=== PATIENT | male | born 1995 | race Caucasian/White ===

== ENCOUNTER → 2023-02-11 10:38 | Outpatient (BNVA) | payer OTHER, SELFPAY | PROVIDERS: PCP Nurse Practitioner Family; Visit Provider Internal Medicine | DX: T15.01XA Foreign body in cornea, right eye, initial encounter (principal) | CPT/HCPCS: 92002; 99202 ==

== ENCOUNTER → 2023-03-11 11:43 | Outpatient (BNVA) | payer OTHER, SELFPAY | PROVIDERS: PCP Nurse Practitioner Family; Visit Provider Internal Medicine | DX: S05.02XA Injury of conjunctiva and corneal abrasion without foreign body, left eye, initial encounter (principal); X58.XXXA Exposure to other specified factors, initial encounter | CPT/HCPCS: 92002; 99203 ==

== ENCOUNTER 2023-07-12 09:38 | Outpatient (REF) | payer OTHER, SELFPAY ==
[2023-07-12 11:35] LABS: MANUAL DIFF FLAG NO
[2023-07-12 11:43] LABS: Basophils Absolute Auto 0.1 X10*3/uL (0.0-0.2); Basophils Percent Auto 1.1 % (0-2); Eosinophils Absolute Auto 0.1 X10*3/uL (0.0-0.4); Eosinophils Percent Auto 2.4 % (0-4); Hematocrit 45.2 % (42.0-52.0); Hemoglobin 15.3 g/dl (14.0-18.0); Imm Gran Abs Auto 0.01 X10*3/uL (0.00-0.03); Imm Gran Pct Auto 0.2 % (0.0-0.4); Lymphocytes Absolute Auto 1.2 X10*3/uL (1.2-4.9); Lymphocytes Percent Auto 26.3 % (20-40); Mean Corpuscular HGB Conc 33.8 g/dl (31.0-36.0); Mean Corpuscular Hemoglobin 30.4 pg (27.0-33.0); Mean Corpuscular Volume 89.7 fL (80.0-98.0); Mean Platelet Volume 10.7 fL (9.4-12.4); Monocytes Absolute Auto 0.4 X10*3/uL (0.1-1.2); Monocytes Percent Auto 9.3 % (2-11); Neutrophils Absolute Auto 2.8 x10*3/uL (2.0-8.3); Neutrophils Percent Auto 60.7 % (45-73); Platelet Count 261 X10*3/uL (160-400); Red Blood Count 5.04 X10*6/uL (4.60-5.80); Red Cell Distribution Width 11.7 % (11.0-16.0); White Blood Count 4.6 X10*3/uL (4.8-10.8)
[2023-07-12 12:30] LABS: Alanine Aminotransferase 18 U/L (0-40); Albumin Level 4.7 g/dL (3.5-5.0); Alkaline Phosphatase 76 U/L (39-117); Anion Gap 13 (12-20); Aspartate Amino Transferase 26 U/L (5-37); Bilirubin Total 0.6 mg/dL (0.0-1.0); Blood Urea Nitrogen 9 mg/dL (9-16); Calcium 9.7 mg/dL (8.4-10.2); Carbon Dioxide 27 mmol/L (22-29); Chloride 105 mmol/L (96-108); Cholesterol 164 mg/dL (<200); Estimated Glomerular Filt Rate > 60; Glucose Fasting 92 mg/dL (60-99); HDL Cholesterol 46 mg/dL (>40); LDL Cholesterol Calculated 95 mg/dL (<100); Sodium 141 mmol/L (135-145); Total Protein 7.7 g/dL (6.5-8.0); Triglycerides 119 mg/dL (<150)
[2023-07-12 12:46] LABS: TSH reflex Free T4 2.21 uIU/mL (0.32-4.0)
[2023-07-12 13:58] LABS: Appearance Urine Clear; Color Urine Yellow; Glucose Urine UA Negative (Negative); Leukocyte Esterase Urine Negative (Negative); Nitrite Urine Negative (Negative); PH 5.5 (5.0-9.0); Urine Blood Negative (Negative); Urine Ketones Negative (Negative); Urine Protein Negative (Neg-Trace)
== END 2023-07-12 09:39 | disposition home or self-care (01) ==
LOC: HO.HMGCLDS 09:38
PROVIDERS: PCP Nurse Practitioner Family; Visit Provider Nurse Practitioner Family
DX: Z00.00 Encounter for general adult medical examination without abnormal findings (principal)
CPT/HCPCS: 36415; 80053; 80061; 81003; 84443; 85025

== ENCOUNTER 2023-07-14 13:58 | Outpatient (AMB) | payer OTHER, SELFPAY ==
[2023-07-14 14:39] VITALS: BP 110/64; PULSE 93; TEMP 36.8; O2SAT 98; BMI 23.6
--- NOTE | 2023-07-14 14:39 | MHC.OFFWIV ---
Intake Vital Signs 07/14/23 14:39 Height 5 ft 8 in Weight 155 lb BMI 23.6 BP 110/64 Blood Pressure Location Rt brachial Position Sitting Pulse 93 Pulse Source Pulse Oximeter Temp 98.3 F Temp Source Temporal Artery Scan Pulse Oximetry (%) 98 Oxygen Delivery Method Room Air Intake Visit Reasons: EP sore throat/strep Intake Note: pt is here today for sore throat started wednesday Patient Tobacco Use Status: Former Tobacco user Quit Date: 3 years ago Allergies No Known Allergies Allergy (Verified 07/14/23 14:53) Do you need a note to return to daycare/school/sports/work: No HPI HPI Comments History of Present Illness Details Patient is a 28-year-old male in today for sick visit. He states that he started to feel sore throat 1 day prior to arrival. He states he has no other symptoms, denies dizziness, chest pain, shortness of breath, vomiting, nausea. He states that his partner is home sick with the same symptoms. He has a history of recurrent strep throat. [facility] Social History Housing: Apartment Patient Tobacco Use Status: Former Tobacco user Quit Date: 3 years ago e-Cigarette/Vaping Use: Currently Using Second Hand Smoke Exposure: No service: No Current occupational status: employed Current occupation: [employer] Current occupational exposures/hazards: No Cognitive needs: No Hearing needs: No Vision needs: No Review of Systems Const Details: Constitutional : No Weight loss, No Fever, No Chills, No Fatigue, No Malaise ENT/Mouth : Admits sore throat. Eyes: No Eye Pain, No Swelling, No Redness Cardiovascular : No Chest Pain, No SOB, No Dyspnea on Exertion, No Orthopnea, No Edema, No Palpitations Respiratory : No Cough, No Sputum, No Wheezing Gastrointestinal : No Nausea, No Vomiting, No Diarrhea, No Constipation, No abdominal Pain, No Hematochezia, No Melena Neuro : No Weakness, No Numbness, No Dizziness, No Headache All other systems reviewed and are negative Physical Exam Vital Signs: Last Vital Signs Temp 98.3 F 07/14/23 14:39 Pulse 93 07/14/23 14:39 BP 110/64 07/14/23 14:39 Pulse Ox 98 07/14/23 14:39 Oxygen Delivery Method Room Air 07/14/23 14:39 BMI result Body Mass Index 23.6 Vital signs reviewed and are stable. Const Other: Appearance: Alert.? Oriented X3.? No acute distress.? Head: Normocephalic, atraumatic, no step-offs or deformities Eyes: Pupils equal, round and reactive to light.? ENT: Pharynx erythema. Purulent drainage over bilateral tonsils. Tonsils plus 2. Neck: Normal inspection.? Neck supple.?Full ROM CVS: Normal heart rate and rhythm.? Pulses normal.? Respiratory: No respiratory distress.? Breath sounds normal.? Neuro: Oriented X 3.? No motor deficit.? No sensory deficit. CN 2-12 intact Results AMB Rapid Strep AMB Rapid Strep Negative Last Edit by Shirley Jauregui CMA on 07/14/23 15:09 Results Reviewed Results Reviewed: Laboratory Last Values Strep Scn Rapid Clinic Negative 07/14/23 15:08 Assessment & Plan Assessment & Plan (1) Strep throat: Comment: Physical exam demonstrated erythema of the pharynx, petechiae, cobblestone, purulent and drainage over the bilateral tonsils. Tonsils are +2. Patient also states he has a history of recurrent strep throat in gets strep throat at least once per year. Will prescribe Augmentin to be taken as directed. Patient has been educated on how to take this medication properly. Patient has been educated on side effects of this medication Code(s): J02.0 - Streptococcal pharyngitis Plan: Take your medications as prescribed. If you were prescribed antibiotics today, it is important that you take your medication to their entirety, do not skip any doses, do not finish them early. Follow-up with your primary care provider this week. Return to the emergency department with new or worsening symptoms. Such as fevers, chills, chest pain, shortness of breath, nausea, vomiting, dizziness, headache, vision changes, lethargy In case of emergency call 911 Orders: Orders AMB Rapid Strep Screen Today Z13.9 - Encounter for screening, unspecified Coding Level of Care Code Est Pt Level 3 (74163) Diagnoses Strep throat J02.0 Time Spent (min) 30
== END 2023-07-14 17:06 | disposition home or self-care (01) ==
PROVIDERS: PCP Nurse Practitioner Family; Visit Provider Nurse Practitioner Primary Care
DX: J02.0 Streptococcal pharyngitis (principal)
CPT/HCPCS: 87880; 99213

== ENCOUNTER 2023-07-14 19:07 | Outpatient (REF) | payer OTHER, SELFPAY ==
[2023-07-14 20:02] LABS: Influenza A PCR NEGATIVE (Negative); Influenza B PCR NEGATIVE (Negative); Resp Syncy Virus RNA Qual PCR NEGATIVE (Negative); SARS COV2 PCR INHOUSE NEGATIVE (Negative)
== END 2023-07-14 19:08 | disposition home or self-care (01) ==
LOC: HO.HMGCLNP 19:07
PROVIDERS: Visit Provider Nurse Practitioner Primary Care
DX: Z11.52 Encounter for screening for COVID-19 (principal); J06.9 Acute upper respiratory infection, unspecified
CPT/HCPCS: 0241U

== ENCOUNTER 2023-07-15 07:45 | Outpatient (AMB) | payer OTHER, SELFPAY ==
--- NOTE | 2023-07-15 07:49 | A.OFFPC_ITS ---
Vital Signs 07/15/23 07:52 Height 5 ft 4 in Weight 157 lb BMI 26.9 BP 118/70 Blood Pressure Location Rt brachial Position Sitting Pulse 78 Pulse Source Pulse Oximeter Pulse Oximetry (%) 98 Oxygen Delivery Method Room Air Intake Visit Reasons: PE Intake Note: Patient here for physical exam and would like to talk about a pulled muscle on right side and ended up in the ED, he is out of work until wednesday after teresa but is unsure if he should have restrictions since he is still in pain. Allergies No Known Allergies Allergy (Verified 07/15/23 07:54) Tobacco use date assessed: 12/10/22 Dental Screening Dental Screen Date: 07/15/23 Did you have a dental visit in the last 12 months?: No Did you have a dental problem in the last 6 months where you did not have access to dental care?: No Was dental information given to patient?: Patient has dentist HPI PE HPI Details Pt is here for a PE. Labs were already ordered. Pt was seen in the walk-in yesterday and treated for strep throat with augmentin. He reports feeling better today, though he will finish his antibiotic. [facility] Social History Housing: Apartment Patient Tobacco Use Status: Former Tobacco user Quit Date: 3 years ago e-Cigarette/Vaping Use: Currently Using Second Hand Smoke Exposure: No service: No Current occupational status: employed Current occupation: [employer] Current occupational exposures/hazards: No Cognitive needs: No Hearing needs: No Vision needs: No Questionnaire Thrive Questionnaire Date Thrive assessed: 12/10/22 AUDIT C Alcohol Use Questionnaire (AUDIT-C) 1. How often do you have a drink containing alcohol?: Monthly or less 2. How many drinks containing alcohol do you have on a typical day when you are drinking?: 1 or 2 3. How often do you have six or more drinks on one occasion?: Never Total Score: 1 Score Reviewed/Action Taken: No YOCASTA-7 AMB Questionnaire YOCASTA-7 Date YOCASTA - 7 assessed: 12/10/22 Source: Developed by Drs. Mikel Sharma, Brianna Chavez, Matt Stokes and colleagues, with an educational shana from [employer]. Review of Systems Const Denies chills and Denies fever(s) Eyes Denies blurry vision ENT Denies vertigo, Denies dizziness and Denies sore throat Card Denies chest pain at rest, Denies chest pain with activity, Denies diaphoresis, Denies dyspnea and Denies dyspnea on exertion Resp Denies cough, Denies dyspnea, Denies dyspnea on exertion and Denies wheezing GI Denies abdominal pain, Denies melena, Denies hematochezia, Denies constipation, Denies diarrhea and Denies loose stools Denies hematuria Musc Denies numbness and Denies tingling Skin/Breast Denies lesions Neuro Denies vertigo, Denies dizziness, Denies numbness and Denies tingling Psych Denies anxiety, Denies depression, Denies homicidal ideation, Denies suicidal ideation and Denies other (substance abuse) Aller/Immun Denies wheezing Physical exam (Primary Care) Vital Signs: Last Vital Signs Pulse 78 07/15/23 07:52 BP 118/70 07/15/23 07:52 Pulse Ox 98 07/15/23 07:52 Oxygen Delivery Method Room Air 07/15/23 07:52 BMI result Body Mass Index 26.9 Tobacco/Smoking Status: Tobacco use Status Tobacco use date assessed 12/10/22 07/15/23 07:49 Patient Tobacco Use Status Former Tobacco user 07/15/23 07:49 e-Cigarette/Vaping Use Currently Using 07/15/23 07:49 Thrive Assessment: Date of Thrive Assessment Date Thrive assessed 12/10/22 07/15/23 07:49 Const General: cooperative Nutritional Appearance: well nourished Orientation/consciousness: patient oriented x3 HENMT Other: tonsils swollen and erythematous Head: Yes normal to inspection, Yes normocephalic and Yes atraumatic Ears: TM's normal bilaterally Eyes General: appearance normal, both eyes and all related structures Alignment and Position: alignment normal and position normal Neck Neck: Yes normal visual inspection and Yes no lymphadenopathy Thyroid: Thyroid normal Resp Effort & Inspection: normal respiratory effort Auscultation: clear to auscultation bilaterally Cardio Rate: regular rate Rhythm: regular rhythm Heart sounds: S1 normal heart sound present, S2 normal heart sound present and no murmurs GI Palpation (GI): Soft to palpation and nontender Auscultation: normal bowel sounds Male General Exam: Yes normal external exam Penis: normal penis Scrotum: scrotum normal, testes descended bilaterally and no inguinal hernias Testes: no testicular mass Skin Rashes: no rashes Neuro General: patient oriented x3, moves all extremities, no focal motor deficits and deep tendon reflexes 2+ bilaterally Romberg Test: Negative Psych Appearance: grossly normal Mental Status: mental status grossly normal Speech and movement: Normal speech and movement present Affect: normal affect Attitude: cooperative Thought process: Normal thought process present Thought content: Normal thought content present Insight: Good insight present (Psych) Judgement: Good judgement present (Psych) Assessment and Plan Assessment & Plan (1) Physical exam: Code(s): Z00.00 - Encounter for general adult medical examination without abnormal findings Plan: Labs ordered Plan The patient agreed to the use of a medical billing coder for this encounter. Scribed for KASHIF Julien by Anahi Hansen medical billing coder, on 07/15/2023 at 08:00 EST. Orders: Orders Complete Blood Count Auto Diff Today Z00.00 - Encounter for general adult medical examination without abnormal findings TSH reflex Free T4 Today Z00.00 - Encounter for general adult medical examination without abnormal findings Comprehensive Edgard. Panel Fast Today Z00.00 - Encounter for general adult medical examination without abnormal findings UA CC w/rflx Micro + Cult Today Z00.00 - Encounter for general adult medical examination without abnormal findings Lipid Panel Today Z00.00 - Encounter for general adult medical examination without abnormal findings Coding Level of Care Code Est Pt Prev Care 18-39y(25826) Diagnoses Physical exam Z00.00
[2023-07-15 07:52] VITALS: BP 118/70; PULSE 78; O2SAT 98; BMI 26.9
== END 2023-07-15 08:15 | disposition home or self-care (01) ==
PROVIDERS: Visit Provider Nurse Practitioner Family
DX: Z00.00 Encounter for general adult medical examination without abnormal findings (principal)
CPT/HCPCS: 99395

== ENCOUNTER 2024-09-16 07:31 | Outpatient (REF) | payer OTHER, SELFPAY ==
[2024-09-16 11:18] LABS: MANUAL DIFF FLAG NO
[2024-09-16 11:27] LABS: Basophils Absolute Auto 0.1 X10*3/uL (0.0-0.2); Basophils Percent Auto 1.2 % (0-2); Eosinophils Absolute Auto 0.1 X10*3/uL (0.0-0.4); Eosinophils Percent Auto 2.3 % (0-4); Hematocrit 43.9 % (42.0-52.0); Hemoglobin 14.7 g/dl (14.0-18.0); Imm Gran Abs Auto 0.04 X10*3/uL (0.00-0.03); Imm Gran Pct Auto 0.8 % (0.0-0.4); Lymphocytes Absolute Auto 1.5 X10*3/uL (1.2-4.9); Lymphocytes Percent Auto 30.9 % (20-40); Mean Corpuscular HGB Conc 33.5 g/dl (31.0-36.0); Mean Corpuscular Volume 89.6 fL (80.0-98.0); Monocytes Absolute Auto 0.4 X10*3/uL (0.1-1.2); Monocytes Percent Auto 8.9 % (2-11); Neutrophils Absolute Auto 2.7 x10*3/uL (2.0-8.3); Neutrophils Percent Auto 55.9 % (45-73); Platelet Count 334 X10*3/uL (160-400); Red Cell Distribution Width 12.2 % (11.0-16.0); White Blood Count 4.8 X10*3/uL (4.8-10.8)
[2024-09-16 11:33] LABS: Appearance Urine Turbid; Color Urine Dark Yellow; Glucose Urine UA Negative (Negative); Leukocyte Esterase Urine Negative (Negative); Nitrite Urine Negative (Negative); PH 5.5 (5.0-9.0); Specific Gravity - Urine >= 1.030 (1.005-1.025); Urine Blood Negative (Negative); Urine Ketones Negative (Negative); Urine Protein Trace mg/dL (Neg-Trace)
[2024-09-16 11:57] LABS: Alanine Aminotransferase 23 U/L (0-40); Albumin Level 4.6 g/dL (3.5-5.0); Alkaline Phosphatase 75 U/L (39-117); Anion Gap 12 (12-20); Aspartate Amino Transferase 37 U/L (5-37); Bilirubin Total 0.7 mg/dL (0.0-1.0); Blood Urea Nitrogen 10 mg/dL (9-16); Calcium 9.7 mg/dL (8.4-10.2); Carbon Dioxide 26 mmol/L (22-29); Chloride 107 mmol/L (96-108); Cholesterol 153 mg/dL (<200); Estimated Glomerular Filt Rate > 60; Glucose Fasting 92 mg/dL (60-99); HDL Cholesterol 45 mg/dL (>40); LDL Cholesterol Calculated 90 mg/dL (<100); Sodium 141 mmol/L (135-145); Triglycerides 94 mg/dL (<150)
[2024-09-16 11:59] LABS: TSH reflex Free T4 1.26 uIU/mL (0.32-4.0); Vitamin D 25-OH Total 25.9 ng/mL (>30)
== END 2024-09-16 07:32 | disposition home or self-care (01) ==
LOC: HO.HMGCLDS 07:31
PROVIDERS: PCP Nurse Practitioner Family; Visit Provider Nurse Practitioner Family
DX: Z00.00 Encounter for general adult medical examination without abnormal findings (principal)
CPT/HCPCS: 36415; 80053; 80061; 81003; 82306; 84443; 85025

== ENCOUNTER 2024-10-24 09:22 | Outpatient (AMB) | payer OTHER, SELFPAY ==
--- NOTE | 2024-10-24 09:35 | A.OFFPC_ITS ---
Vital Signs 10/24/24 09:36 Height 5 ft 4 in Weight 150 lb BMI 25.7 BP 110/80 Blood Pressure Location Lt brachial Pulse 63 Pulse Source Pulse Oximeter Pulse Oximetry (%) 98 Intake Visit Reasons: Annual PE [employer] Reviewer Required: No Accompanied by: Self / Same As Patient Allergies No Known Allergies Allergy (Verified 10/24/24 10:06) Medication List - Last Reconciled 10/24/24 by OMKAR Ragsdale No Known Home Meds Tobacco use date assessed: 10/24/24 Dental Screening Dental Screen Date: 10/24/24 Did you have a dental visit in the last 12 months?: Yes Did you have a dental problem in the last 6 months where you did not have access to dental care?: No Was dental information given to patient?: Patient has dentist HPI Annual PE HPI Details History of Present Illness The patient is a 29-year-old male presenting with a physical examination. He reported having stable health following laboratory tests conducted approximately one month ago, and denies experiencing chest pain, shortness of breath, abdominal pain, constipation, diarrhea, or urinary problems. The patient also denies any feelings of anxiety, depression, suicidal ideation, or homicidal thoughts. He acknowledges a reduction in alcohol consumption compared to previous levels, indicating improved self-awareness of health behaviors, while stating he feels generally well without significant health complaints. Health Maintenance - Discussed health promotion, focusing o n reduction of alcohol intake. Social History - Reports decreased alcohol consumption compared to past usage. Review of Systems - Cardiovascular: Denies chest pain. - Respiratory: Denies shortness of breat h. - Gastrointestinal: Denies abdominal yogi n, constipation, and diarrhea. - Genitourinary: Denies urinary issues. - Psychiatric: Denies anxiety, depressio n, suicidal ideation, and homicidal thoughts. Physical Exam General: Cooperative, healthy appearing, comfortable, no acute distress and well developed Orientation: Patient oriented x3 Limitations: No limitations Head: Normal to inspection Ears: Hearing grossly normal bilaterally Nose: Normal external nose present Face and sinus: Normal facial exam Eyes: Appearance normal, both eyes and all related structures Neck: Normal visual inspection and Yes full ROM Respiratory: Normal respiratory effort and able to speak in complete sentences. Clear to auscultation bilaterally Cardiovascular: Regular rate and rhythm. Normal S1 and S2 GI: Normal to inspection. Soft to palpation and nontender Skin: No rashes or lesions noted Neuro: Patient oriented x3 Extremities: Normal to inspection Results Plan We acknowledged the patient's successful reduction in alcohol consumption as a positive health behavior. We emphasized the benefits of maintaining this reduction for long-term health improvement. Regular follow-ups will continue to support his health and catch any future concerns. Discussion Notes I reviewed with the patient the positive outcomes related to his reduced alcohol consumption and its role in improving overall health. We discussed the benefits of sustaining such lifestyle changes and potential health improvements. The patient expressed understanding and agreement with the planned approach to ongoing health monitoring and support. Patient Instructions - Continue to maintain reduced alcohol c onsumption. - Monitor for any new or concerning symp toms. - Schedule routine health visits for pieter oing monitoring. PFSH Surgical History No pertinent past surgical history Social History Housing: Apartment Patient Tobacco Use Status: Former Tobacco user e-Cigarette/Vaping Use: Currently Using Second Hand Smoke Exposure: No service: No Current occupational status: employed Current occupation: [employer] Current occupational exposures/hazards: No Cognitive needs: No Hearing needs: No Vision needs: No Questionnaire PHQ-9 Over the last 2 weeks, how often have you been bothered by any of the following problems? 1. Little interest or pleasure in doing things: not at all 2. Feeling down, depressed, or hopeless: not at all 3. Trouble falling or staying asleep, or sleeping too much: not at all 4. Feeling tired or having little energy: not at all 5. Poor appetite or overeating: not at all 6. Feeling bad about yourself - or that you are a failure or have let yourself or your family down: not at all 7. Trouble concentrating on things, such as reading the newspaper or watching television: not at all 8. Moving or speaking so slowly that other people could have noticed. Or the opposite - being so fidgety or restless that you have been moving around a lot more than usual: not at all 9. Thoughts that you would be better off or of hurting yourself in some way: not at all Total score: 0 Depression Screening Interpretation: Negative Depression Screening Done: Yes [id number] - PHQ-9 Billing: Yes Source: Developed by Drs. Mikel Sharma, Brianna Chavez, Matt Stokes and colleagues, with an educational shana from [employer]. Thrive Questionnaire Date Thrive assessed: 10/24/24 I am a: Patient What is your living situation today?: I have a steady place to live Within the past 12 months, did the food you bought not last and you didn't have the money to get more?: Never true Within the past 12 months, did you worry whether your food would run out before you got money to buy more?: Never true Do you have trouble paying for medicines?: No Do you have trouble getting transportation to medical appointments?: No Do you have trouble paying your heating and electricity bill?: No Do you have trouble taking care of your child, family member or friend?: No Do you have trouble with day-to-day activities such as bathing, preparing meals, shopping, managing finances, etc.?: No Are you currently unemployed and looking for a job?: No Are you interested in more education?: No Please select the resources that you would like help with: None Currently or been in a relationship where the following occur: No concerns reported THRIVE Score: 0 AUDIT C Alcohol Use Questionnaire (AUDIT-C) 1. How often do you have a drink containing alcohol?: Monthly or less 2. How many drinks containing alcohol do you have on a typical day when you are drinking?: 1 or 2 3. How often do you have six or more drinks on one occasion?: Never Total Score: 1 Score Reviewed/Action Taken: Yes YOCASTA-7 AMB Questionnaire YOCASTA-7 Date YOCASTA - 7 assessed: 10/24/24 Feeling nervous, anxious, or on edge: 0 = Not at all Not being able to stop or control worryin = Not at all Worrying too much about different things: 0 = Not at all Trouble relaxin = Not at all Being so restless that it is hard to sit still: 0 = Not at all Becoming easily annoyed or irritable: 0 = Not at all Feeling afraid as if something awful might happen: 0 = Not at all Total YOCASTA-7 score (0-4 normal; 5-9 mild; 10-14 moderate; 15-21 severe): 0 Source: Developed by Drs. Mikel Sharma, Brianna Chavez, Matt Stokes and colleagues, with an educational shana from [employer]. YOCASTA-7 Assessment Billing YOCASTA-7 Assessment Tool: YOCASTA-7 Assessment 19514 Physical exam (Primary Care) Vital Signs: Last Vital Signs Pulse 63 10/24/24 09:36 BP 110/80 10/24/24 09:36 Pulse Ox 98 10/24/24 09:36 BMI result Body Mass Index 25.7 Tobacco/Smoking Status: Tobacco use Status Tobacco use date assessed 10/24/24 10/24/24 09:41 Patient Tobacco Use Status Former Tobacco user 10/24/24 09:41 e-Cigarette/Vaping Use Currently Using 10/24/24 09:41 PHQ-9: PHQ-9 Score PHQ-9: Total score 0 10/24/24 09:41 Depression Screening Interpretation: Negative Thrive Assessment: Date of Thrive Assessment Date Thrive assessed 10/24/24 10/24/24 09:41 Currently or been in a relationship where the following occur: No concerns reported Coding Level of Care Code Est Pt Prev Care 18-39y(20502) Diagnoses Physical exam Z00.00 Additional Codes YOCASTA-7 Assessment Billing - YOCASTA-7 Assessment Tool: YOCASTA-7 Assessment [id number] ([id number]) PHQ-9 - 66147 - PHQ-9 Billing: Yes ([id number]) Assessment & Plan Assessment & Plan (1) Physical exam: Code(s): Z00.00 - Encounter for general adult medical examination without abnormal findings Category: Medical Plan . Orders: Orders Comprehensive Cope. Panel Fast 09/16/24 Z00.00 - Encounter for general adult medical examination without abnormal findings Lipid Panel 09/16/24 Z00.00 - Encounter for general adult medical examination without abnormal findings Complete Blood Count Auto Diff 09/16/24 Z00.00 - Encounter for general adult medical examination without abnormal findings TSH reflex Free T4 09/16/24 Z00.00 - Encounter for general adult medical examination without abnormal findings UA CC w/rflx Micro + Cult 09/16/24 Z00.00 - Encounter for general adult medical examination without abnormal findings Vitamin D 25-OH Total 09/16/24 Z00.00 - Encounter for general adult medical examination without abnormal findings
[2024-10-24 09:36] VITALS: BP 110/80; PULSE 63; O2SAT 98; BMI 25.7
--- OUTSIDE RECORDS SUMMARY | 2024-10-24 10:32 | XMS_ITS | Clinical Summary ---
Author Organization [facility] Address [address] [place], [place] [id number] Phone Care Team Providers Care Change Management Consultant Name Role Phone Kevin Georges MD Primary Care Provider Allergies No known active allergies Medications amphetamine-dext roamphetamine XR 10 MG 24 hr capsule Take by mouth every morning. 0 12/10/2018 Active ARIPiprazole 10 MG tablet Take 10 mg by mouth once daily. 1 11/30/2018 Active divalproex 250 MG 24 hr tablet Take 250 mg by mouth every evening. 1 11/08/2018 Active Active Problems Problem Noted Date Diagnosed Date Puncture wound of left foot 06/03/2020 Assessment & Plan (06/03/2020 4:02 PM EST): 06/02/2020 Miki Caldera MD ?? Cc: puncture wound left foot (stepped on nail) ?? Xray: left foot xray shows no bony abnormality and no foreign body seen ?? Diagnosis: puncture wound of foot ?? Plan: Stable, discharged to home ?? Prescriptions: -Levofloxacin 750 mg -Mupirocin 2% topical ointment -Acetaminophen 325 mg -Ibuprofen 600 mg ? Spoke damion Gimenez. He is doing well. Foot is painful but he is managing. Will take abx for the full 5 days and will call if noticing any signs of infection. Vaccine refused by patient 02/18/2018 Overview (02/27/2020): No immunization record on file except for TDap 02/18/2018. Refused MMR, varicella and HPV vaccines. Assessment & Plan (02/27/2020 5:23 PM EDT): Signed refusal form for MMR, Varicella and HPV vaccines. Mood disorder 02/18/2018 Overview (02/18/2018): He is on adderall, depakote, abilify Assessment & Plan (02/27/2020 5:19 PM EDT): Pernell has been on an antipsychotic (aripiprazole) and doing well with this. His current medication provider is retiring. He does not have a new provider lined up. I gave him a list of medication providers in the area to call to try to make an appointment. ADHD 02/18/2018 Assessment & Plan (02/27/2020 5:18 PM EDT): Pernell was followed outside the office for ADHD medications as he is also on other psychiatric medications. He is transitioning to a new medication provider. Resolved Problems Problem Noted Date Diagnosed Date Resolved Date Well adult exam 02/18/2018 02/27/2020 Immunizations Immunization Administration Dates Next Due Tdap 02/18/2018 Family History Medical History Relation Name Comments No Known Problems Mother Karis No Known Problems Sister 1 Gracy No Known Problems Sister 2 Jessica Relation Name Status Comments Brother Robert Alive Mother Karis Sister 1 Gracy Alive Sister 2 Jessica Alive Social History Tobacco Use Types Packs/Day Years Used Date Smoking Tobacco: Never Assessed Hunger/Food Answer Date Recorded In the last 12 months, did y ou or your family ever eat less than you felt you should because there wasn't enough money for food? No 02/25/2020 Stable Housing Answer Date Recorded Are you worried that in the next 2 months you may not have stable housing? No 02/25/2020 Transportation Concerns Answer Date Rec orded In the last 12 months, have you or your family ever had to go without healthcare because you didn't have a way to get there? No 02/25/2020 Hazards in Home Answer Date Recorded Think about the place you li ve. Do you have problems with any of the following? Pests (mice or roaches), mold, no/not working smoke detectors, water leaks, no window guards. No 2019 Financing Utilities Answer Date Recorde d In the last 12 months, has t he [employer], gas, oil, or water company threatened to shut off your services in your home? No 02/25/2020 Safety at Home Answer Date Recorded Are you or your family worried about feeling saf e in your home? No 02/25/2020 Outside Support Answer Date Recorded Do you feel that you need mo re support from other people or programs to help you care for yourself or your family? No 02/25/2020 Understanding Health Concerns Answer Da te Recorded Do you need help understandi ng your or your child's healthcare needs (diagnosis, medications, plan, etc.)? No 02/25/2020 Financing Health Concerns Answer Date R ecorded In the last 12 months, was t here a time when your child needed to see a doctor or get medications or supplies but could not because of cost? No 02/25/2020 Missing School or Work Answer Date Cristian rded Did you or your child miss s chool or work because of a health problem that could have been avoided? No 02/25/2020 Sex and Gender Information Value Date Recorded Sex Assigned at Not on file Legal Sex Male 3:36 PM EDT Gender Identity Not on file Sexual Orientation Not on file Last Filed Vital Signs Vital Sign Reading Time Taken Comments Blood Pressure 120/78 02/27/2020 10:08 AM EDT Pulse 80 02/27/2020 10:08 AM EDT Temperature 36.8 ??C (98.2 ??F) 02/27/2020 10:08 AM E DT Respiratory Rate - - Oxygen Saturation - - Inhaled Oxygen Concentration - - Weight 65.8 kg (145 lb) 02/27/2020 10:08 AM EDT Height 174 cm (5' 8.5 ) 02/27/2020 10:08 AM EDT Body Mass Index 21.73 02/27/2020 10:08 AM EDT Plan of Treatment Health Maintenance Due Date Last Done Comments MMR Vaccines (1 of 1 - Standard series) 1995 Varicella Vaccines (1 of 2 - 13+ 2-dose series) 2007 Hepatitis B Vaccines (1 of 3 - 19+ 3-dose series) 2013 Glucose/HbA1C 02/27/2020 LDL-C/Cholesterol 02/27/2020 Influenza Vaccines (#1) 2024 COVID-19 Vaccine (3 - 2023-2 5 season) 2024 01/21/2021, 12/30/2020 DTaP,Tdap,and Td Vaccines (3 - Td or Tdap) 06/02/2030 06/02/2020, 02/18/2018 HIB Vaccines Aged Out No longer eligi ble based on patient's age to complete this topic HPV Vaccines Aged Out No longer eligi ble based on patient's age to complete this topic Hepatitis A Vaccines Aged Out No long er eligible based on patient's age to complete this topic IPV Vaccines Aged Out No longer eligi ble based on patient's age to complete this topic Men B Vaccine Aged Out No longer elig ible based on patient's age to complete this topic Meningococcal Vaccine Aged Out No wendi foster eligible based on patient's age to complete this topic Pneumococcal Vaccine Aged Out No long er eligible based on patient's age to complete this topic Insurance [facility] Care Teams Change Management Consultant Relationship Specialty Start Date End Date Kevin Georges MD [address] [place] [id number] [place] [id number] PCP - General Pediatrics 02/16/18
== END 2024-10-24 10:15 | disposition home or self-care (01) ==
PROVIDERS: PCP Nurse Practitioner Family; Visit Provider Nurse Practitioner Family
DX: Z00.00 Encounter for general adult medical examination without abnormal findings (principal)

== ENCOUNTER → 2024-10-24 09:22 | Outpatient (BNVA) | payer OTHER, SELFPAY | PROVIDERS: PCP Nurse Practitioner Family; Visit Provider Nurse Practitioner Family | DX: Z00.00 Encounter for general adult medical examination without abnormal findings (principal) | CPT/HCPCS: 96127 ==